=== PATIENT | female | born 1995 | race Caucasian/White ===

== ENCOUNTER 2022-11-27 18:55 | Inpatient (IN) | payer OTHER ==
[2022-11-27 19:35] VITALS: BMI 54.8
[2022-11-27] MEDS ORDERED: Promethazine HCl 25 MG/ML VIAL IM PRN (20:09)
[2022-11-27] MEDS ORDERED: Misoprostol 200 MCG TAB PR PRN (20:09)
[2022-11-27] MEDS ORDERED: Ondansetron PF 4 MG/2 ML Vial IVP PRN (20:09)
[2022-11-27] MEDS ORDERED: Lidocaine 1% (PF) 30 ML VIAL SC PRN (20:09)
[2022-11-27] MEDS ORDERED: hydrALAZINE 20 MG/ML VIAL SLOW IVP PRN (20:09)
[2022-11-27] MEDS ORDERED: Carboprost 250 MCG/ML AMP IM PRN (20:09)
[2022-11-27] MEDS ORDERED: Methylergonovine 0.2 MG/ML VIAL IM PRN (20:09)
[2022-11-27] MEDS ORDERED: Tranexamic Acid 1,000 MG/10 ML VIAL IVP PRN (20:09)
[2022-11-27] MEDS ORDERED: NS w/ Oxytocin 30 units 500 ML IV SCH ×3 (20:30)
[2022-11-27 21:05] LABS: Hemoglobin 10.5 g/dL (12.0-15.5); Mean Corpuscular HGB CONC 32.6 g/dL (32.0-36.0); Mean Corpuscular Hemoglobin 24.7 pg (27.0-33.0); Mean Corpuscular Volume 75.8 fl (81.6-98.3); Mean Platelet Volume 10.7 fl (7.4-10.4); Platelet Count 241 10x3/uL (150-450); RBC Distribution Width 14.6 % (11.5-14.5); Red Blood Cell (RBC) Count 4.25 10x6/uL (3.90-5.03); White Blood Cell (WBC) Count 8.3 10x3/uL (3.5-10.5)
[2022-11-27] MEDS: Misoprostol 100 MCG TAB VAG SCH (21:09)
[2022-11-27] MEDS: Lactated Ringer's 1,000 ML IV SCH (21:09)
[2022-11-27 21:39] LABS: HBSAg Index 0.18 S/CO (0-0.99); Hep B Surf Ag - L&D Non-Reactive S/CO (NonReactive); Syphilis Antibody Nonreactive (Nonreactive); Syphilis Antibody Index 0.04 S/CO (<1.00 Non-Reactive)
[2022-11-28] MEDS ORDERED: fentaNYL/Ropivacaine Epidural 100 ML ONE (03:42)
[2022-11-28] MEDS: Lactated Ringer's 1,000 ML IV SCH ×2 (04:16→18:32)
[2022-11-28] MEDS ORDERED: Promethazine HCl 25 MG/ML VIAL IM PRN (04:47)
[2022-11-28] MEDS ORDERED: Lactated Ringer's 500 ML IV PRN (04:47)
[2022-11-28] MEDS ORDERED: Ondansetron PF 4 MG/2 ML Vial IVP PRN ×2 (04:47→15:41)
[2022-11-28] MEDS ORDERED: diphenhydrAMINE 50 MG/ML VIAL IVP PRN (04:47)
[2022-11-28] MEDS ORDERED: ePHEDrine Sulfate 50 MG/10 ML VIAL SLOW IVP PRN (04:47)
[2022-11-28] MEDS ORDERED: Moisturizing Cream (Eucerin) 113 GM JAR TOP PRN (04:47)
[2022-11-28] MEDS ORDERED: Acetaminophen 325 MG TAB PO PRN (04:47)
[2022-11-28] MEDS ORDERED: Naloxone HCl 0.4 mg/ml Vial IVP PRN ×2 (04:47)
[2022-11-28] MEDS ORDERED: Communication Order-Pharmacy FS SCH (05:00)
[2022-11-28] MEDS ORDERED: fentaNYL 2 mcg/Ropivacaine 0.2% Epidural 100 ML CADD EPIDURAL SCH (05:00)
[2022-11-28] MEDS ORDERED: Benzocaine-Menthol 82.5 ML CAN TOP PRN (15:41)
[2022-11-28] MEDS ORDERED: Milk Of Magnesia 30 ML UDCUP PO PRN (15:41)
[2022-11-28] MEDS ORDERED: hydrALAZINE 20 MG/ML VIAL SLOW IVP PRN (15:41)
[2022-11-28] MEDS ORDERED: Lanolin Ointment 7 GM TUBE TOP PRN (15:41)
[2022-11-28] MEDS ORDERED: Boostrix 0.5 ML (Tdap) VIAL (>/=7 yrs of age) IM ONE (15:41)
[2022-11-28] MEDS ORDERED: Bisacodyl 10 MG SUPP PR PRN (15:41)
[2022-11-28] MEDS: Ferrous Sulfate 325 MG TAB PO SCH (18:30)
[2022-11-28] MEDS: Misoprostol 100 MCG TAB VAG SCH ×2 (18:30→18:32)
[2022-11-28] MEDS: Ibuprofen 800 MG TAB PO SCH (22:36)
[2022-11-28] MEDS: Docusate 100 MG CAP PO SCH (22:36)
[2022-11-29] MEDS: Ibuprofen 800 MG TAB PO SCH ×2 (06:13→13:44)
[2022-11-29] MEDS: Docusate 100 MG CAP PO SCH (08:47)
[2022-11-29] MEDS: Ferrous Sulfate 325 MG TAB PO SCH ×2 (08:47→16:00)
[2022-11-29] MEDS ORDERED: Prenatal Vitamin 1 TAB PO SCH (09:00)
[2022-11-29 11:32] VITALS: TEMP 98.1
[2022-11-29 17:05] VITALS: BP 129/67
== END 2022-11-29 18:55 | disposition home or self-care (01) | DRG 807 ==
LOC: CSHLD 18:55 → CSHPP 11-28 17:50
PROVIDERS: ADMIT Obstetrics & Gynecology; ATTEND Obstetrics & Gynecology
PROC: 10E0XZZ Delivery of Products of Conception, External Approach (ICD-10-PCS; principal; 2022-11-27)
PROC: 3E0P7VZ Introduction of Hormone into Female Reproductive, Via Natural or Artificial Opening (ICD-10-PCS; 2022-11-27)
PROC: 10907ZC Drainage of Amniotic Fluid, Therapeutic from Products of Conception, Via Natural or Artificial Opening (ICD-10-PCS; 2022-11-27)
PROC: 10H07YZ Insertion of Other Device into Products of Conception, Via Natural or Artificial Opening (ICD-10-PCS; 2022-11-27)
PROC: 3E033VJ Introduction of Other Hormone into Peripheral Vein, Percutaneous Approach (ICD-10-PCS; 2022-11-27)
DX: O99.214 Obesity complicating childbirth (principal); Z37.0 Single live birth; E66.9 Obesity, unspecified; Z3A.39 39 weeks gestation of pregnancy; Z79.82 Long term (current) use of aspirin; O76 Abnormality in fetal heart rate and rhythm complicating labor and delivery; O24.420 Gestational diabetes mellitus in childbirth, diet controlled; O69.81X0 Labor and delivery complicated by cord around neck, without compression, not applicable or unspecified
CPT/HCPCS: 36415; 51702; 85027; 86780; 86850; 86900; 86901; 87340; J2590; J7120